=== PATIENT | female | born 2000 | race African-American/Black ===

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

== ENCOUNTER 2018-02-22 11:01 | Emergency (ER) | payer OTHER | END 2018-02-22 14:32 | disposition home or self-care (01) | LOC: M ED 11:01 | DX: S70.11XA Contusion of right thigh, initial encounter (principal); S50.01XA Contusion of right elbow, initial encounter; V03.10XA Pedestrian on foot injured in collision with car, pick-up truck or van in traffic accident, initial encounter; Y92.410 Unspecified street and highway as the place of occurrence of the external cause | CPT/HCPCS: 73080 ==